=== PATIENT | male | born 1975 | race Two or more races ===

== ENCOUNTER → 2024-08-01 | Outpatient (CLI) | payer BC, SELFPAY ==
[2024-08-01 07:53] LABS: Collection Type, Urine Clean Catch
[2024-08-01 08:56] LABS: Basophils # (Auto) 0.1 Thou/mm3 (0.0-0.2); Basophils % (Auto) 2 % (0-2.5); Eosinophils # (Auto) 0.4 Thou/mm3 (0.0-0.5); Eosinophils % (Auto) 6 % (0-10); Hematocrit 37.4 % (41.0-53.0); Immature Granulocytes % (Auto) 1 % (0-0); Immature Granulocytes Auto 0.04 Thou/mm3 (0.00-0.00); Lymphocytes # (Auto) 2.8 Thou/mm3 (1.0-4.8); Lymphocytes % (Auto) 42 % (10-50); Mean Corpuscular HGB Conc 29.4 g/dl (31.0-37.0); Mean Corpuscular Volume 72 fL (80-100); Monocytes # (Auto) 0.9 Thou/mm3 (0.0-0.8); Monocytes % (Auto) 13 % (0-12); Neutrophils # (Auto) 2.5 Thou/mm3 (1.8-7.7); Neutrophils % (Auto) 37 % (37-80); Nucleated Red Blood Cell % 0 /100 WBC (0); Platelet Count 443 Thou/mm3 (140-440); Prostate Specific Antigen 1.26 ng/mL (0-4.00); RDW Standard Deviation 48.3 fL (35.1-43.9); Red Blood Count 5.23 Miln/mm3 (4.50-5.90); White Blood Count 6.7 Thou/mm3 (3.8-10.6)
[2024-08-01 09:05] LABS: Alanine Aminotransferase 27 U/L (10-49); Albumin, Serum 4.6 gm/dL (3.5-5.0); Albumin/Globulin Ratio 1.6 (1.2-2.2); Alkaline Phosphatase 68 U/L (46-116); Anion Gap 7 (7-16); Aspartate Amino Transferase 38 U/L (0-34); BUN/Creatinine Ratio 15 Ratio (12-20); Bilirubin,Total 0.2 mg/dL (0.3-1.2); Blood Urea Nitrogen 12 mg/dL (9-23); C-Reactive Protein < 0.4 mg/dL (0.0-0.9); Calcium 8.7 mg/dL (8.3-10.6); Calcium (Corrected) 8.7 mg/dL (8.5-10.1); Carbon Dioxide 26.5 mMol/L (20.0-31.0); Cardiac Risk Estimate 3.6 RATIO (4.0-6.7); Chloride 108 mMol/L (98-107); Cholesterol 146 mg/dL (132-200); Creatinine (Component) 0.8 mg/dL (0.6-1.3); Globulin 2.9 gm/dL (2.3-3.5); Glucose 126 mg/dL (74-106); HDL Cholesterol 41 mg/dL (40-60); LDL Cholesterol,Calculated 80 mg/dL (0-130); Osmolality,Calculated 282 (275-295); Potassium 4.1 mMol/L (3.4-5.1); Sodium 141 mMol/L (136-145); Thyroid Stimulating Hormone 1.81 uIU/mL (0.55-4.78); Total Protein 7.5 gm/dL (5.7-8.2); Triglycerides 126 mg/dL (30-150); eGFR > 60 See Note
[2024-08-01 09:26] LABS: Bilirubin,Urine Negative (Negative); Blood,Urine Negative (Negative); Clarity,Urine Clear (Clear/Hazy); Color,Urine Lt-Yellow (Lt Yel-Yel); Glucose, Urine Negative (Negative); Ketones,Urine Trace (Negative); Leukocyte Esterase,Urine Negative (Negative); Nitrite,Urine Negative (Negative); PH,Urine 5.5 (5.0-7.0); Protein,Urine Negative (Neg - Trace); RBC,Urine 3 /hpf (0-3); Specific Gravity,Urine 1.021 (1.001-1.035); Squamous Epithelial Cell,Urine < 1 /hpf (0-5); Urobilinogen,Urine Negative mg/dL (0.0-1.0); WBC,Urine < 1 /hpf (0-5)
[2024-08-01 09:48] LABS: Glucose Estimated Average 137 mg/dL (80-131); Hemoglobin A1C 6.4 % Hgb (4.8-6.0)
[2024-08-08 06:26] LABS: Calprotectin, Stool* 262 mcg/g
== END | disposition home or self-care (01) ==
PROVIDERS: PCP Internal Medicine Hematology & Oncology; Referring Provider Specialist; Visit Provider Specialist
DX: K59.1 Functional diarrhea (principal); R19.5 Other fecal abnormalities; R14.0 Abdominal distension (gaseous)
CPT/HCPCS: 36415; 80053; 80061; 81001; 83036; 83993; 84153; 84443; 85025; 86140

== ENCOUNTER 2024-08-26 08:15 | Day surgery (SDC) | payer BC, SELFPAY ==
[2024-08-25 13:46] VITALS: BMI 29.2
[2024-08-26] VITALS (11 sets, daily range): BP systolic 126–165; BP diastolic 86–118; PULSE 62–82; RESP 12–20; TEMP 36.4–36.9; O2SAT 91–98; BMI 28.3
[2024-08-26] MEDS: DiphenhydrAMINE INJ 50 MG/ML VIAL 25 MG IV (10:30)
[2024-08-26] MEDS: fentaNYL CIT INJ 50 mCg/ML AMP 2ML (ASD USE ONLY) IV (10:32)
[2024-08-26] MEDS: MIDAZOLAM INJ 1 MG/ML VIAL 2 ML (ASD USE ONLY) 2 MG IV (10:32)
[2024-08-26] MEDS: ONDANSETRON INJ 2 MG/ML INJ 2 ML 4 MG IV (10:32)
--- NOTE | 2024-08-26 10:47 | SUR.PHASEII ---
1047: pt received from [place] via [employer] report received from KENDRA Reyes. pt sleeping but able to open eyes when called his name. no s/s of pain or discomfort. no s/s of res. distress or discomfort.
[2024-08-26] MEDS: hydrALAZINE INJ 20 MG/ML VIAL 10 MG IV (10:50)
--- NOTE | 2024-08-26 11:05 | SUR.PHASEII ---
1105: pt alert and oriented x3. able to drink water without any difficulty.
--- NOTE | 2024-08-26 11:29 | SUR.PHASEII ---
1129: discharge instructions given in [place] with sign language interpreter Augusto BENNETT
--- NOTE | 2024-08-26 11:29 | SUR.PHASEII ---
1129: pt discharge to home via wheelchair. pt alert and oriented x3. denies any pain or discomfort. no s/s of resp. distress or discomfort. discharge instructions given to and pt, verbalizes understanding. all belongings brought given back to pt.
== END 2024-08-26 11:29 | disposition home or self-care (01) ==
PROVIDERS: PCP Nurse Practitioner Family; Referring Provider Specialist; Visit Provider Specialist
PROC: 0DBE8ZX Excision of Large Intestine, Via Natural or Artificial Opening Endoscopic, Diagnostic (ICD-10-PCS; CPT 45380; principal; 2024-08-26 09:15)
DX: Z12.11 Encounter for screening for malignant neoplasm of colon (principal); K51.011 Ulcerative (chronic) pancolitis with rectal bleeding; K64.9 Unspecified hemorrhoids
CPT/HCPCS: 45380; A4649; J0360; J1200; J2250; J2405; J3010